=== PATIENT | female | born 1970 | race Two or more races ===

== ENCOUNTER 2021-10-10 09:53 | Emergency (ER) | payer OTHER ==
[2021-10-10 10:47] VITALS: BP 125/78; PULSE 94; TEMP 98.5
[2021-10-10 12:20] LABS: URINE APPEARANCE CLEAR; URINE BILIRUBIN NEGATIVE (NEGATIVE); URINE COLOR YELLOW; URINE GLUCOSE (UA) NEGATIVE (NEGATIVE); URINE KETONE NEGATIVE (NEGATIVE); URINE LEUK ESTERASE NEGATIVE (NEGATIVE); URINE NITRITE NEGATIVE (NEGATIVE); URINE PROTEIN NEGATIVE (NEGATIVE); URINE UROBILINOGEN 0.2 mg/dL (0.2-1.0)
== END 2021-10-10 12:43 | disposition home or self-care (01) ==
LOC: JER 09:53 → JERFT 09:53
DX: N76.0 Acute vaginitis (principal)
CPT/HCPCS: 81003; 87086; 87186; 99283-25

== ENCOUNTER 2023-05-10 11:53 | Emergency (ER) | payer OTHER ==
[2023-05-10 12:02] VITALS: BP 119/80; PULSE 91; RESP 16; TEMP 97.8
[2023-05-10] MEDS ORDERED: IBUPROFEN 600 MG TABLET (FP) PO ONE (12:23)
[2023-05-10] MEDS: IBUPROFEN 600 MG TABLET (FP) PO ONE (12:24)
== END 2023-05-10 13:49 | disposition home or self-care (01) ==
LOC: JERFT 11:53
DX: M79.671 Pain in right foot (principal)
CPT/HCPCS: 73610-TC-RT-FY; 73630-TC-RT-FY; 99283-25